=== PATIENT | female | born 1940 | race Caucasian/White ===

== ENCOUNTER 2017-09-12 18:05 | Emergency (ER) | payer OTHER, BC ==
[~2017-09-12] VITALS: Ht 154.9 cm; Wt 61.6 kg
[2017-09-12 18:23] VITALS: BP 166/92
== END 2017-09-12 20:17 | disposition home or self-care (01) ==
LOC: EME 18:05
DX: Z20.3 Contact with and (suspected) exposure to rabies (principal); Z23 Encounter for immunization; Z29.14 Encounter for prophylactic rabies immune globulin
CPT/HCPCS: 99281; 99284

== ENCOUNTER → 2017-12-04 | Outpatient (CLI) | payer MEDICARE, BC | END | disposition home or self-care (01) | LOC: CDC 09:50 | DX: Z01.810 Encounter for preprocedural cardiovascular examination (principal); I10 Essential (primary) hypertension; M25.562 Pain in left knee; M67.462 Ganglion, left knee; I45.10 Unspecified right bundle-branch block; R94.31 Abnormal electrocardiogram [ECG] [EKG] | CPT/HCPCS: 93000 ==